=== PATIENT | male | born 2000 | race Caucasian/White ===

== ENCOUNTER 2020-01-02 21:36 | Emergency (ER) | payer OTHER ==
[~2020-01-02] VITALS: Ht 185.4 cm; Wt 68.0 kg
[2020-01-02] MEDS ORDERED: BUSPIRONE HCL10 MG PO (21:43)
[2020-01-02] MEDS ORDERED: PROZAC20 MG PO (21:44)
[2020-01-02] MEDS ORDERED: OMEPRAZOLE40 MG PO (21:44)
[2020-01-03] MEDS ORDERED: HYDROCODON-ACE1 EAC7 PO (00:26)
[2020-01-03] MEDS ORDERED: IBUPROFEN 800800 MG PO (00:26)
[2020-01-03] MEDS ORDERED: KEFLEX500 M1 PO (00:26)
[2020-01-03 00:35] VITALS: BP 135/74
== END 2020-01-03 00:36 | disposition home or self-care (01) ==
LOC: M.ERS 21:36
DX: S62.601A Fracture of unspecified phalanx of left index finger, initial encounter for closed fracture (principal); S61.221A Laceration with foreign body of left index finger without damage to nail, initial encounter; S61.225A Laceration with foreign body of left ring finger without damage to nail, initial encounter; Z79.899 Other long term (current) drug therapy; W39.XXXA Discharge of firework, initial encounter; Y93.89 Activity, other specified; Y92.89 Other specified places as the place of occurrence of the external cause; Y99.9 Unspecified external cause status

== ENCOUNTER 2020-05-22 22:06 | Emergency (ER) | payer OTHER ==
[~2020-05-22] VITALS: Ht 185.4 cm; Wt 72.6 kg
[~2020-05-22 22:06] MED LIST: BUSPIRONE HCL10 MG PO; HYDROCODON-ACE1 EAC7 PO; IBUPROFEN 800800 MG PO; KEFLEX500 M1 PO; OMEPRAZOLE40 MG PO; PROZAC20 MG PO
[2020-05-22 23:25] LABS: URINE BILIRUBIN NEGATIVE (Negative); URINE BLOOD NEGATIVE (Negative); URINE CLARITY CLEAR; URINE COLOR YELLOW; URINE GLUCOSE-RANDOM NEGATIVE (Negative); URINE KETONES 1+ (Negative); URINE LEUKOCYTES-REFLEX NEGATIVE (Negative); URINE NITRITE-REFLEX NEGATIVE (Negative); URINE PROTEIN 3+ (Negative); URINE SPECIFIC GRAVITY >= 1.030 (1.005-1.030); URINE UROBILINOGEN 0.2 E.U./dl (0.2-1.0)
[2020-05-22 23:33] LABS: AMP/METHAMP POSITIVE (Negative); BARBITURATES Negative (Negative); BENZODIAZEPINES Negative (Negative); COCAINE Negative (Negative); METHADONE Negative (Negative); OPIATES Negative (Negative); PCP Negative (Negative); THC POSITIVE (Negative)
[2020-05-22] MEDS ORDERED: ACTICIN 5% CREA60 G1 TOP (23:36)
[2020-05-22 23:54] LABS: CASTS None Seen /LPF (None Seen); MUCUS 4-6 Moderate strn/LPF (None Seen); SQUAMOUS 0-3 Few /LPF (0-3)
[2020-05-22 23:55] VITALS: BP 130/102
[2020-05-22 23:56] LABS: BACTERIA-REFLEX 1-9 Few /HPF (None Seen); CRYSTALS None Seen /LPF (None Seen); URINE RBC 0-2 Rare /HPF (0-2); URINE WBC-REFLEX 0-5 Rare /HPF (0-5)
== END 2020-05-22 23:56 | disposition home or self-care (01) ==
LOC: M.ERS 22:06
PROVIDERS: Emergency Medicine
DX: S81.811A Laceration without foreign body, right lower leg, initial encounter (principal); R23.4 Changes in skin texture; Z79.899 Other long term (current) drug therapy; X58.XXXA Exposure to other specified factors, initial encounter; Y93.89 Activity, other specified; Y92.89 Other specified places as the place of occurrence of the external cause; Y99.8 Other external cause status